=== PATIENT | male | born 1945 | race Caucasian/White ===

== ENCOUNTER 2017-06-18 10:01 | Inpatient (IN) ==
[2017-06-13 16:10] LABS: Appearance,Urine CLEAR; Bilirubin,Urine NEG (NEG); Color,Urine YELLOW; Glucose,Urine (UA) NEGATIVE (NEG); Leukocyte Esterase,Urine NEG /uL (NEG); Protein,Urine NEG (NEG); Specific Gravity,Urine 1.016 (1.000-1.035); Urine Blood NEG mg/dL (<0.03); Urobilinogen,Urine NEG (NEG)
[2017-06-13 20:38] LABS: Blood Urea Nitrogen 26 mg/dl (8-23)
[2017-06-13 21:01] LABS: Basophils # (Auto) 0 K/mcL (0.0-0.3); Basophils % (Auto) 0.6 % (0.0-2.0); Eosinophils # (Auto) 0.2 K/mcL (0.0-0.7); Eosinophils % (Auto) 3.9 % (0.0-7.0); Granulocytes % (Auto) 68.4 % (38.0-78.0); Lymphocytes # (Auto) 1.1 K/mcL (1.5-4.8); Lymphocytes % (Auto) 19.2 % (15.5-49.0); Mean Corpuscular HGB Conc 33.2 g/dL (31.0-36.0); Mean Corpuscular Hemoglobin 32.2 pg (26.0-34.0); Monocytes # (Auto) 0.5 K/mcL (0.1-0.9); Monocytes % (Auto) 7.9 % (1.0-12.0); Platelet Count 217 K/mcL (140-440); RBC 5.12 M/mcL (4.50-5.90); Red Cell Distribution Width 13.5 % (11.5-14.5)
[~2017-06-18 10:01] MED LIST: CELECOXIB 200 MG CAPSULE PO SCH; KETOROLAC 30 MG, ROPIVACAINE HCL/PF 49.5 ML, EPINEPHrine 0.5 MG, 0.9 % SODIUM CHLORIDE ... IJ SCH; PREGABALIN 75 MG CAPSULE PO SCH; ceFAZolin 1 GM VIAL IV SCH; oxyCODONE 10 MG TAB.ER.12H PO SCH
[2017-06-18] MEDS ORDERED: 0.9 % SODIUM CHLORIDE 250 ML IV SCH (10:45)
[2017-06-18] MEDS ORDERED: BUPIVACAINE W/EPI 0.5% 50 ML VIAL IJ ONE (13:30)
[2017-06-18] MEDS ORDERED: TRANEXAMIC ACID 1,000 MG/10 ML VIAL IV ONE ×2 (13:30→15:17)
[2017-06-18] MEDS ORDERED: EPINEPHrine 1 MG/ML ML IV ONE (13:30)
[2017-06-18] MEDS ORDERED: ONDANSETRON 4 MG/2 ML VIAL IV ONE (13:30)
[2017-06-18] MEDS ORDERED: PROPOFOL 200 MG/20 ML VIAL IV ONE (13:30)
[2017-06-18] MEDS ORDERED: MIDAZOLAM 2 MG/2 ML VIAL IV ONE (13:30)
[2017-06-18] MEDS ORDERED: PHENYLEPHRINE 10 MG/ML VIAL IV ONE (13:30)
[2017-06-18] MEDS ORDERED: KETAMINE 100 MG/ML ML IV ONE (13:30)
[2017-06-18] MEDS ORDERED: LIDOCAINE HCL/PF 100 MG/5 ML SYRINGE IV ONE (13:30)
[2017-06-18] MEDS ORDERED: ePHEDrine 50 MG/ML AMPUL IV PRN (14:40)
[2017-06-18] MEDS ORDERED: ONDANSETRON 4 MG/2 ML VIAL IV PRN ×2 (14:40→15:17)
[2017-06-18] MEDS ORDERED: IPRATROPIUM/ALBUTEROL 3 ML AMPUL.NEB NEB PRN (14:40)
[2017-06-18] MEDS ORDERED: PROMETHAZINE 25 MG/ML VIAL IV PRN (14:40)
[2017-06-18] MEDS ORDERED: MEPERIDINE 25 MG/ML SYRINGE IV PRN (14:40)
[2017-06-18] MEDS ORDERED: METHOCARBAMOL 1,000 MG/10 ML VIAL IV PRN (14:40)
[2017-06-18] MEDS ORDERED: LACTATED RINGERS 1,000 ML IV SCH (14:45)
[2017-06-18] MEDS ORDERED: BISACODYL 10 MG SUPP.RECT PR PRN (15:17)
[2017-06-18] MEDS ORDERED: FLEETS ADULT ENEMA PR PRN (15:17)
[2017-06-18] MEDS ORDERED: BENZOCAINE/MENTHOL 1 LOZENGE PO PRN (15:17)
[2017-06-18] MEDS ORDERED: MAGNESIUM HYDROXIDE 30 ML ORAL.SUSP PO PRN (15:17)
[2017-06-18] MEDS ORDERED: POLYETHYLENE GLYCOL 3350 17 GM PACKET PO PRN (15:17)
--- NOTE | 2017-06-18 15:18 | Brief Operative Note ---
Date of procedure: 06/18/17 Pre-op diagnosis: R knee DJD Post-op diagnosis: same Procedure: Right total knee arthroplasty robotic assisted Grafts/Implants: Yes ([place] 5 CR femur, 5 tibia, 11 mm insert, 36 patella) Anesthesia: spinal, GLMA Findings: severe arthritis Complications: none Surgeon: Chris Cyr Polisher Dial: Liz Adrian Estimated blood loss (cc): 30 Specimens Removed/Pathology: none sent Condition: stable Disposition: PACU
[2017-06-18] MEDS ORDERED: ALBUTEROL SULFATE 1 PUFF INHALER INH PRN (15:27)
[2017-06-18] MEDS ORDERED: TESTOSTERONE CYPIONATE 100 MG IM SCH (15:30)
[2017-06-18] MEDS: fentaNYL 100 MCG/2 ML VIAL IV PRN ×8 (16:05→16:47)
--- NOTE | 2017-06-18 17:01 | XRay Report ---
HISTORY: Reason for Exam:Post-op total knee. FINDINGS: There is a well positioned total knee prosthesis. No fracture is present and there are no abnormal soft tissue calcifications. IMPRESSION: Well-positioned right knee prosthesis Interpreted and Authenticated by: Bony Tompkins 06/18/17
[2017-06-18] MEDS: HYDROmorphone 2 MG/ML VIAL IV PRN (17:20)
[2017-06-18] MEDS: WARFARIN 5 MG TABLET PO SCH (17:28)
[2017-06-18] MEDS: 0.9 % SODIUM CHLORIDE 1,000 ML IV SCH (17:28)
[2017-06-18] MEDS: KETOROLAC 15 MG/ML VIAL IV SCH ×2 (17:42→23:57)
[2017-06-18] MEDS ORDERED: TAMSULOSIN 0.4 MG CAPSULE PO SCH (21:00)
[2017-06-18] MEDS ORDERED: SENNOSIDES 1 TABLET PO SCH (21:00)
[2017-06-18] MEDS ORDERED: ASPIRIN 325 MG ENTERIC COATED TABLET PO SCH (21:00)
[2017-06-18] MEDS ORDERED: ATORVASTATIN 20 MG TABLET PO SCH (21:00)
[2017-06-18] MEDS: ceFAZolin 1 GM VIAL IV SCH (21:13)
[2017-06-18] MEDS: DOCUSATE SODIUM 100 MG CAPSULE PO SCH (21:14)
[2017-06-18] MEDS: FUROSEMIDE 40 MG TABLET PO SCH (21:14)
[2017-06-18] MEDS: FLUTICASONE HFA 220MCG INHALER INH SCH (21:15)
[2017-06-18] MEDS: 0.9 % SODIUM CHLORIDE 10 ML SYRINGE IV SCH (21:15)
[2017-06-18] MEDS: HYDROcodone/APAP 10/325MG TABLET PO PRN (22:48)
[2017-06-19] MEDS: WARFARIN 5 MG TABLET PO SCH (02:09)
[2017-06-19] MEDS: 0.9 % SODIUM CHLORIDE 1,000 ML IV SCH (02:12)
[2017-06-19] MEDS: HYDROcodone/APAP 10/325MG TABLET PO PRN ×2 (02:45→07:14)
[2017-06-19] MEDS: 0.9 % SODIUM CHLORIDE 10 ML SYRINGE IV SCH (04:19)
[2017-06-19] MEDS: HYDROmorphone 2 MG/ML VIAL IV PRN ×2 (04:37→10:13)
[2017-06-19] MEDS: KETOROLAC 15 MG/ML VIAL IV SCH (05:28)
[2017-06-19] MEDS: ceFAZolin 1 GM VIAL IV SCH (05:29)
[2017-06-19] MEDS ORDERED: OMEPRAZOLE 20 MG CAPSULE PO SCH (07:30)
--- NOTE | 2017-06-19 08:05 | Discharge Summary ---
Ortho Discharge - TKA - Patient Instructions Diet: Regular Diet Activity: activity as tolerated, weight bearing as tolerated Total Knee Protocol: For Total Knee: Start ROM SENDY with stationary bike or rocking chair. Work on gaining full extension of knee. Posterior dislocation precautions provided. Hip abductor strengthening and gait training instructions provided. Apply Cryocuff as instructed. Dressing Care: May shower in 2 days, Aquacel Ag - leave on for 5 days - Follow Up Plan Follow Up Appointments: Chris Cyr MD [Physician] - 07/03/17 1:10 pm Disposition: Home, Self-Care Prognosis: Good Rehab Potential: Good - Orders For Discharge Additional Discharge Orders: Physical Therapy at Discharge - TKA Location: Determined By Patient Toilet Riser Discharge Order Location: Determined By Patient Walker Location: Determined By Patient Prothrombin Time INR Location: Determined By Patient
[2017-06-19] MEDS: DOCUSATE SODIUM 100 MG CAPSULE PO SCH (08:40)
[2017-06-19] MEDS: FUROSEMIDE 40 MG TABLET PO SCH (08:40)
[2017-06-19] MEDS: FLUTICASONE HFA 220MCG INHALER INH SCH (08:42)
[2017-06-19] MEDS ORDERED: HYDROCHLOROTHIAZIDE 12.5 MG CAPSULE PO SCH (09:00)
[2017-06-19] MEDS ORDERED: LISINOPRIL/HCTZ 20/12.5MG TABLET PO SCH (09:00)
[2017-06-19] MEDS ORDERED: LISINOPRIL 20 MG TABLET PO SCH (09:00)
[2017-06-19] MEDS ORDERED: ESOMEPRAZOLE MAGNESIUM PO SCH (09:00)
[2017-06-19] MEDS ORDERED: ALLOPURINOL 300 MG TABLET PO SCH (09:00)
--- NOTE | 2017-06-19 09:17 | Orthopedic Progress Note ---
Subjective Patient information: Note initiated : 06/19/17 at 9:14 am Service Date, if different from initiated Date: [] Patient: Home Moreno 71 y/o M admitted on 06/18/17 for Right Uni Medial Iker Knee vs Total Knee. Chief Complaint: [] Principal diagnosis: s/p total knee Interval history: no c/o, wants to go home Objective Vital signs: Vital Signs Temp Pulse Resp BP Pulse Ox 06/19/17 07:20 70 06/19/17 07:18 98.8 F 71 20 114/65 90 06/19/17 03:15 97.8 F 71 20 109/60 94 06/18/17 23:20 99.1 F H 63 20 148/75 92 06/18/17 19:02 98.0 F 74 20 124/76 94 06/18/17 18:33 74 106/56 90 06/18/17 18:04 77 173/84 95 06/18/17 17:48 80 133/89 94 06/18/17 17:47 98.5 F 95 H 24 H 157/86 90 06/18/17 17:33 89 132/78 90 06/18/17 17:19 84 145/78 93 06/18/17 17:03 78 152/74 90 06/18/17 16:45 98.5 F 95 H 18 157/86 90 06/18/17 16:30 98.5 F 110 H 18 166/75 92 06/18/17 16:10 98.5 F 110 H 18 166/75 92 06/18/17 15:55 98.5 F 94 H 18 151/82 95 06/18/17 15:50 98.5 F 102 H 18 113/65 93 06/18/17 15:45 98.5 F 94 H 20 148/55 94 06/18/17 15:40 98.5 F 66 26 H 132/53 93 06/18/17 10:44 98.0 F 66 18 145/72 94 Intake and Output 06/18/17 06/19/17 06/19/17 21:59 05:59 13:59 Intake Total 1330 / 1330 1448 / 1448 Output Total 1025 / 1025 Balance 1330 / 1330 423 / 423 Intake: IV 873 / 873 Sodium Chloride 0.9% 1,000 ml @ 873 / 873 100 mls/hr IV .Q10H ОЛЕГ Rx#: [id number] Oral 330 / 330 575 / 575 IV - Manual Only 1000 / 1000 Output: Void Amount 1025 / 1025 Other: Meal soup, crackers Percent of Meal Consumed 100% Feeding Ability Independent # Voids 1 Weight 250 lb Intake & Output: Intake & Output 06/18/17 06/19/17 06/19/17 21:59 05:59 13:59 Intake Total 1330 / 1330 1448 / 1448 Output Total 1025 / 1025 Balance 1330 / 1330 423 / 423 Weight 250 lb Intake: IV 873 / 873 Sodium Chloride 0.9% 1,000 ml @ 873 / 873 100 mls/hr IV .Q10H ОЛЕГ Rx#: [id number] Oral 330 / 330 575 / 575 IV - Manual Only 1000 / 1000 Output: Void Amount 1025 / 1025 Other: Meal soup, crackers Percent of Meal Consumed 100% Feeding Ability Independent # Voids 1 Neurological exam IM: Yes alert, Yes oriented X3 - Labs CBC & BMP: 06/19/17 04:32 06/13/17 14:39 Labs: Orthopedic Labs 06/19/17 06/18/17 06/13/17 04:32 10:50 14:39 POC PT 13.2 PT 15.0 H 31.0 H POC INR 1.1 INR 1.2 H 2.9 H 06/19/17 06/13/17 04:32 14:39 Hgb 14.0 16.5 Hct 41.6 49.7 Assessment and Plan (1) S/P total knee arthroplasty POD#1-stable, wants to go home -d/c home Status: Acute
--- NOTE | 2017-06-19 09:22 | Operative Note ---
DATE OF OPERATION: 06/18/2017 PREOPERATIVE DIAGNOSIS: Right knee medial compartment osteoarthritis. POSTOPERATIVE DIAGNOSIS: Multi-compartment osteoarthritis. PROCEDURE PERFORMED: Right robotic-assisted total knee arthroplasty placing a Irwin cruciate retaining size 5 femoral component, size 5 tibial baseplate, 11 mm X3 tibial insert with a 36 mm patellar button. SURGEON: Chris Cyr MD. PUMP AND BLOWER OPERATOR: Liz Adrian PA-C ANESTHESIA: Spinal plus general. DRAINS: None. SPECIMENS: Bone cuts, which were discarded. BLOOD LOSS: 30 mL COMPLICATIONS: None. POSTOPERATIVE CONDITION: Stable. INDICATIONS FOR SURGERY: This is a 71-year-old male who has had progressive worsening right knee pain. Radiographs showed [id number] medial compartment osteoarthritis. FINDINGS AT SURGERY: He had a full thickness medial compartment and trochlear groove where post-implantation showed good limb alignment and stability with patellar tracking. PROCEDURE IN DETAIL: The patient had been seen preoperatively. Informed consent had been obtained after discussion of risks and benefits of surgery. Risks including, but not limited to, bleeding, possibly requiring transfusion; infection, possibly requiring implant removal and prolonged IV antibiotics; injury to nerves, blood vessels or other surrounding structures; anesthetic risks; incomplete or no resolution of symptoms; stiffness; swelling; pain; instability; DVT and pulmonary embolus risks; and the possibility of needing further revision surgery. He understood these risks and wished to proceed. Correct operative site was marked and the patient was taken to the operating room after spinal anesthesia was given. LMA general was given and the right lower extremity was carefully prepped and draped in normal sterile fashion and a timeout was performed verifying patient name, operative site, and plan. Esmarch was used to exsanguinate the extremity and tourniquet was inflated. A midline incision was made with a scalpel through skin and subcutaneous tissue. IrriSept was irrigated and then a medial parapatellar arthrotomy made. Subperiosteal exposure was done of the anterior medial tibia and then we inspected the joint. Based off of the multi-compartment involvement we elected to proceed then with a total knee arthroplasty. Stab incisions, two were made over the femur and two over the tibia and then bicortical pins were placed the arrays were connected to these pins. We then placed the femoral and tibial checkpoints. Hip center of rotation was checked followed by medial and lateral malleoli checks. We used the probe to double check our femoral and tibial checkpoints. We then went ahead and did our cartilage mapping with the blue probe. After this was completed, we then used a rongeur to remove osteophytes. We then used the spoons to check our flexion and extension gaps. There was some challenge as he was tight laterally in flexion but loose laterally in extension. We tried to balance the medial side as best as possible at 17 to 18 mm. We then used the robotic assistance to do our bone cuts and marked our tibial rotation. We then prepared the tibia with the boss reamer and keel punch. The femur was elevated and curved osteotome was used to remove osteophytes. We then placed our femoral trial. Peg holes were drilled. We then freehand prepared our patella removing 10 mm of bone. We sized to a 36, which was medialized maximally and then the holes were drilled. A lateral facetectomy was performed. We then checked our patellar tracking, which was good. We went ahead and opened our definitive implants and removed trial implants. IrriSept was irrigated in the joint. After a minute we pulse lavaged and the CO2 gun was used to clean and dry cancellous bone surfaces. Antibiotic [place] was mixed and then we cemented the tibia followed by the femur. Excess cement was removed and a 9 trial insert was placed. The knee was taken into extension and the patella was cemented. The joint was filled with IrriSept and then we injected pain cocktail throughout the joint. After cement had fully hardened, we pulse lavaged with saline and then removed our tibial insert trial. We were right at 0 degrees and it felt like the poly went in fairly easily, so I trialed an 11. This was much better stability, so we opened an 11 insert. The trial was removed. We injected pain cocktail in the posterior capsule and then squirted Aricept. We then impacted the insert carefully verifying it to be fully seated. We then pulse lavaged copiously with saline and then interrupted #2 FiberWire [id number] were used around the superior quadrant, interrupted #1 Vicryl [id number] around the inferior quadrant. This was done after removal of our femoral and tibial checkpoints. We then used running #1 Vicryl for patellar tendon and quad tendon. Final IrriSept irrigation was done and 2-0 Monocryl for subcutaneous and jennifer for skin. Pins were removed and sterile dressing was applied. Tourniquet was released. The patient was awakened, extubated, and transferred to recovery in stable condition. [id number] Job ID: [id number] Doc ID: [id number] Chris Cyr MD
== END 2017-06-19 10:30 | disposition home or self-care (01) | DRG 470 ==
LOC: SUR 10:01 → MEDSUR 16:59
PROVIDERS: ADMIT Orthopaedic Surgery; ATTEND Orthopaedic Surgery